=== PATIENT | female | born 1965 | race Caucasian/White ===

== ENCOUNTER 2017-04-06 17:16 | Emergency (ER) | payer OTHER, SELFPAY ==
[2017-04-06] MEDS ORDERED: Ketorolac Tromethamine 30 MG/ML VIAL ONE (17:42)
--- NOTE | 2017-04-06 20:01 | RAD ---
EXAM: LEFT FOOT THREE VIEWS 04/06/17 HISTORY: Injury. Foot pain. COMPARISON: None. FINDINGS: Lisfranc alignment is maintained. Joint spaces are preserved. No fracture. No cortical irregularity or periosteal reaction. There is midfoot soft tissue swelling. Minimal bony hypertrophy of the calca neus. Hypertrophy due to degenerative change. IMPRESSION: Nonspecific soft tissue swelling. No fracture. POS: [facility]
== END 2017-04-06 18:54 | disposition home or self-care (01) ==
LOC: ERS 17:16
DX: M79.89 Other specified soft tissue disorders (principal); I10 Essential (primary) hypertension; W01.0XXA Fall on same level from slipping, tripping and stumbling without subsequent striking against object, initial encounter; Y93.01 Activity, walking, marching and hiking
CPT/HCPCS: 96372; J1885

== ENCOUNTER 2017-08-18 11:26 | Emergency (ER) | payer SELFPAY ==
--- NOTE | 2017-08-18 14:08 | RAD ---
3 VIEWS LEFT HAND: Date: 08/18/17 HISTORY: Left hand pain with left third finger swelling and pain. Symptoms started Robert after a bit sean was noticed on finger. FINDINGS: There is subcutaneous soft tissue swelling involving the left middle finger. No osseous destruction i s seen. No radiopaque foreign body is seen. There is no evidence of a fracture or dislocation. IMPRESSION: 1. Diffuse subcutaneous soft tissue swelling left middle finger. No radiopaque foreign body is seen, and there is no dislocation. 2. Minimal scattered osteoarthritis left hand. POS: [facility]
== END 2017-08-18 12:46 | disposition home or self-care (01) ==
LOC: SCSER 11:26
DX: L08.9 Local infection of the skin and subcutaneous tissue, unspecified (principal); I10 Essential (primary) hypertension; Z79.899 Other long term (current) drug therapy

== ENCOUNTER 2017-08-19 15:00 | Observation (INO) | payer SELFPAY ==
[~2017-08-19 15:00] MED LIST: Dexamethasone 20 MG/5 ML VIAL ONE; Lidocaine 1% PF 5 ML VIAL ONE; Ondansetron HCl/PF 4 MG/2 ML Vial ONE; PHENYLEPHRINE-NS 100 MCG/ML 10 ML SYRINGE ONE; Propofol 200 MG/20 ML VIAL ONE; Succinylcholine Chloride 20 MG/ML 10 ml SYRINGE FS ONE
[2017-08-19 16:20] LABS: #Eosinphils 0.3 thou/uL (0.0-0.7); #Lymphocytes 1.8 thou/uL (1.20-3.40); #Monocytes 1.1 thou/uL (0.11-0.59); #Neutrophils 8.6 thou/uL (1.40-6.50); %Basophils 0.3 % (0.0-1.0); %Eosinophils 2.2 % (0.0-10.0); %Lymphocytes 15.4 % (21.0-51.0); %Monocytes 9.1 % (0.0-10.0); %Neutrophils 73.1 % (42.0-75.0); Hemoglobin 12.8 g/dL (12.0-16.0); Mean Corpuscular HGB CONC 33.4 g/dL (32.0-36.0); Mean Corpuscular Hemoglobin 31.8 pg (27.0-31.0); Mean Corpuscular Volume 95.3 fl (81.0-99.0); Mean Platelet Volume 7.5 fL (7.4-10.4); Platelet Count 325 thou/uL (130-400); RBC Distribution Width 12.5 % (11.5-14.5); Red Blood Cell (RBC) Count 4.01 mill/uL (4.20-5.40); White Blood Cell (WBC) Count 11.8 thou/uL (4.8-10.8)
[2017-08-19 16:39] LABS: ALT (SGPT) 17 U/L (8-55); AST (SGOT) 22 U/L (5-34); Albumin 4.5 g/dL (3.5-5.0); Alkaline Phosphatase 117 U/L (40-150); Anion Gap 13 mmol/L (10-20); BUN (Urea Nitrogen) 18 mg/dL (9.8-20.1); Bilirubin, Total 0.4 mg/dL (0.2-1.2); CRP (Inflammatory) 2.78 mg/dL (= or < 0.5); Calc. Creatinine Clearance 0 mL/min (70-130); Calcium 10.3 mg/dL (7.8-10.44); Carbon Dioxide 28 mmol/L (22-29); Chloride 102 mmol/L (98-107); Estimated GFR-MDRD 46; Globulin 3.5 g/dL (2.4-3.5); Glucose 112 mg/dL (70-105); Potassium 4.1 mmol/L (3.5-5.1); Sodium 139 mmol/L (136-145)
[2017-08-19] MEDS ORDERED: Ondansetron HCl/PF 4 MG/2 ML Vial ONE (16:44)
[2017-08-19] MEDS ORDERED: Fentanyl 100 MCG/2 ML VIAL ONE (17:13)
[2017-08-19] MEDS ORDERED: Neomycin-Polymyxin 1 ML AMP ONE (17:21)
[2017-08-19] MEDS ORDERED: cefTRIAXone\\ROCEPHIN 2 GM in Sodium Chloride 0.9% 100 ML IVPB SCH (17:30)
[2017-08-19] MEDS ORDERED: Ondansetron HCl/PF 4 MG/2 ML Vial IVP PRN ×2 (18:03→20:57)
[2017-08-19 20:17] VITALS: BMI 37.2
[2017-08-19 20:41] LABS: Lactic Acid 0.7 mmol/L (0.5-2.2)
[2017-08-19] MEDS ORDERED: HYDROcodone/Acetaminophen 10/325 mg Tablet PO PRN ×2 (20:55)
[2017-08-19] MEDS ORDERED: Morphine 5 MG/ML SYRINGE SLOW IVP PRN ×2 (20:56)
[2017-08-19] MEDS ORDERED: Ondansetron ODT 4 MG TAB PO PRN (20:57)
[2017-08-19] MEDS ORDERED: Sodium Chloride 0.9% 1,000 ML IV SCH (21:00)
[2017-08-19] MEDS: Sulfameth/Trimethoprim DS 800-160mg TAB PO SCH (22:23)
--- NOTE | 2017-08-20 00:25 | OP ---
DATE OF OPERATION: 08/19/2017 PREOPERATIVE DIAGNOSIS: Abscess on the volar ulnar aspect to the middle phalanx of the left middle f yolis. POSTOPERATIVE DIAGNOSIS: Abscess on the volar ulnar aspect to the middle phalanx of the left middle finger. PROCEDURE: Incision and drainage and irrigation and debridement of abscess to the left middle finger . SURGEON: Dr. Michele Nation. ANESTHESIA: General. TECHNIQUE: She was taken to the operating room, placed in the supine position. Satisfactory general anesthesia was performed in the left hand and upper extremity were sterilely prepped and draped in t he usual fashion. A 0.25-inch Christine drain was used at the base of the middle finger to access the tourniquet. A longitudinal incision was made on the palmar ulnar aspect of the middle phalanx and bl unt dissection was made deeper into the finger at which point, we encountered an abscess full of puru lent drainage. The fluid was sent for Gram stain and culture and sensitivity. The wound was opened and then the wound was copiously irrigated using high-speed grab operator and antibiotic solution. The w ound was left open and a sterile dressing was applied. The tourniquet at the base of the finger was removed and 10 mL of 0.25% Marcaine plain was injected for digital block for postoperative analgesia. The patient was then awakened, extubated, and transferred to the recovery room in stable condition. ESTIMATED BLOOD LOSS: None. COMPLICATIONS: None.
[2017-08-20] MEDS ORDERED: cefTRIAXone\\ROCEPHIN 2 GM in Sodium Chloride 0.9% 100 ML IVPB SCH (06:00)
[2017-08-20] MEDS: Sulfameth/Trimethoprim DS 800-160mg TAB PO SCH (08:38)
[2017-08-20] MEDS ORDERED: FLU VACC QS2017-18 36 mo. & older 0.5 ML SYRINGE IM ONE (09:00)
[2017-08-20] MEDS ORDERED: Losartan/Hydrochlorothiazide 100 mg/25 mg Tablet PO SCH (09:00)
--- NOTE | 2017-08-20 13:06 | DIS ---
DATE OF ADMISSION: 08/19/2017 DATE OF DISCHARGE: 08/20/2017 HISTORY OF PRESENT ILLNESS: Ms. Hampton developed increasing pain, erythema and swelling over the mid phalanx of the left middle finger. The patient was taken to the operating room where the finger und erwent incision and drainage. There was purulent drainage consistent with an abscess in the left mid dle finger. The wound was left open. The patient started on IV antibiotics. Cultures the following day showed Staph aureus. The patient is feeling much better. She has been afebrile. Vital signs r emained stable. She will be discharged home. Follow up in my office in 1 week. DISCHARGE MEDICATIONS: Bactrim-DS 1 p.o. b.i.d. #30, Tylenol #4 one every 6 hours as needed for pain , #40 with 1 refill. She is to soak her left hand and middle finger in warm salt water twice a day for 20 minutes at a miguel e.
[2017-08-20 13:17] VITALS: BP 125/84; TEMP 98.2
== END 2017-08-20 13:49 | disposition home or self-care (01) ==
LOC: ERS 15:00 → SDC/OP 18:10 → SURG A 19:13
PROVIDERS: ADMIT Orthopaedic Surgery; ATTEND Orthopaedic Surgery
PROC: 0H9GXZZ Drainage of Left Hand Skin, External Approach (ICD-10-PCS; principal; 2017-08-20)
DX: L02.512 Cutaneous abscess of left hand (principal)
CPT/HCPCS: 36415; 80053; 83605; 85025; 85379; 85652; 86140; 87040; 87070; 87077; 87186; 87205; 96374; 99284; G0378; J0696; J1100; J2001; J2270; J2405; J2704; J3010; J7050

== ENCOUNTER 2021-01-10 13:07 | Emergency (ER) | payer OTHER ==
[2021-01-10 15:20] LABS: #Basophils 0.1 thou/uL (0.0-0.2); #Eosinphils 0.6 thou/uL (0.0-0.7); #Lymphocytes 2.3 thou/uL (1.20-3.40); #Monocytes 0.9 thou/uL (0.11-0.59); #Neutrophils 4.6 thou/uL (1.40-6.50); %Basophils 0.8 % (0.0-1.0); %Eosinophils 6.7 % (0.0-10.0); %Lymphocytes 27.7 % (21.0-51.0); %Monocytes 10.1 % (0.0-10.0); %Neutrophils 54.7 % (42.0-75.0); Hemoglobin 12.7 g/dL (12.0-16.0); Mean Corpuscular HGB CONC 35.1 g/dL (32.0-36.0); Mean Corpuscular Hemoglobin 32.6 pg (27.0-31.0); Mean Corpuscular Volume 93.1 fL (78.0-98.0); Mean Platelet Volume 8.1 fL (7.4-10.4); Platelet Count 252 thou/uL (130-400); RBC Distribution Width 11.9 % (11.5-14.5); Red Blood Cell (RBC) Count 3.88 mill/uL (4.20-5.40); White Blood Cell (WBC) Count 8.4 thou/uL (4.8-10.8)
[2021-01-10 15:38] LABS: ALT (SGPT) 13 U/L (8-55); AST (SGOT) 21 U/L (5-34); Albumin 4.1 g/dL (3.5-5.0); Alkaline Phosphatase 96 U/L (40-110); Anion Gap 14 mmol/L (10-20); BUN (Urea Nitrogen) 14 mg/dL (9.8-20.1); Bilirubin, Total 0.3 mg/dL (0.2-1.2); CK (CPK) 125 U/L (29-168); Calc. Creatinine Clearance 0 mL/min (70-130); Calcium 9.6 mg/dL (7.8-10.44); Carbon Dioxide 25 mmol/L (22-29); Chloride 103 mmol/L (98-107); Glucose 92 mg/dL (70-105); Lipase 26 U/L (8-78); Potassium 3.7 mmol/L (3.5-5.1); Protein, Total 7.1 g/dL (6.0-8.3); Sodium 138 mmol/L (136-145)
== END 2021-01-10 16:04 | disposition home or self-care (01) ==
LOC: ERS 13:07
DX: R07.89 Other chest pain (principal); I10 Essential (primary) hypertension; Z79.899 Other long term (current) drug therapy
CPT/HCPCS: 36415; 71045; 80053; 82550; 83690; 84484; 85025; 93005